=== PATIENT | male | born 1935 | race African-American/Black ===

== ENCOUNTER 2019-02-21 07:24 | Emergency (ER) | payer MEDICARE, OTHER ==
[2019-02-21 08:46] LABS: Bilirubin Negative (Negative); Blood, Urine Negative (Negative); Clarity Clear (Clear); Glucose, Urine (Dipstick) Negative (Negative); Leukocyte Negative (Negative); Nitrite Negative (Negative); Protein, Urine (Dipstick) Trace mg/dL (Neg-Trace); Urobilinogen 0.2 mg/dL (Less than 2)
[2019-02-21 08:57] LABS: #Basophils 0.1 thou/uL (0.0-0.2); #Eosinphils 0.1 thou/uL (0.0-0.7); #Lymphocytes 1.1 thou/uL (1.20-3.40); #Monocytes 0.5 thou/uL (0.11-0.59); #Neutrophils 5.3 thou/uL (1.40-6.50); %Basophils 1.2 % (0.0-1.0); %Eosinophils 0.8 % (0.0-10.0); %Monocytes 6.9 % (0.0-10.0); %Neutrophils 76.2 % (42.0-75.0); Mean Corpuscular HGB CONC 31.1 g/dL (32.0-36.0); Mean Corpuscular Hemoglobin 28.6 pg (27.0-31.0); Mean Corpuscular Volume 92.2 fL (78.0-98.0); Mean Platelet Volume 6.2 fL (7.4-10.4); Platelet Count 154 thou/uL (130-400); RBC Distribution Width 13.3 % (11.5-14.5); Red Blood Cell (RBC) Count 4.55 mill/uL (4.70-6.10)
[2019-02-21 09:15] LABS: ALT (SGPT) 12 U/L (8-55); AST (SGOT) 26 U/L (5-34); Alkaline Phosphatase 54 U/L (40-150); Anion Gap 16 mmol/L (10-20); BUN (Urea Nitrogen) 16 mg/dL (8.4-25.7); Bilirubin, Total 0.3 mg/dL (0.2-1.2); Calc. Creatinine Clearance 0 mL/min (70-130); Calcium 8.7 mg/dL (7.8-10.44); Carbon Dioxide 19 mmol/L (23-31); Chloride 108 mmol/L (98-107); Estimated GFR-MDRD 48; Globulin 3.9 g/dL (2.4-3.5); Glucose 110 mg/dL (83-110); Potassium 4.2 mmol/L (3.5-5.1); Protein, Total 7.9 g/dL (5.8-8.1); Sodium 139 mmol/L (136-145)
--- NOTE | 2019-02-21 10:09 | CT ---
Exam: CHEST CT WITHOUT CONTRAST ABDOMEN CT WITHOUT CONTRAST PELVIS CT WITHOUT CONTRAST: HISTORY: Worsening back pain, x1 month. Evaluate for aortic dissection. FINDINGS: Chest CT: Limited evaluation of the mediastinal structures due to lack of IV contrast. No mediastinal mass or lymphadenopathy.. Heart size is within normal limits. No pericardial effusion. There is calcification of the coronary arteries. The ascending thoracic aorta, aortic arch, descending thoraci c aorta, and abdominal aorta do not demonstrate any periaortic fat stranding. Scattered calcified atherosclerotic plaques are noted. The ascending thoracic aorta is upper normal in size measuring 3.8 x 3.6 cm. No evidence of an aneurysm. Trachea and central bronchi are patent. Dependent atelectatic changes. No pleural effusion. No pneum othorax. Right lun mm nodule in the right upper lobe. Calcified granuloma in the right lower lobe measurin g 2 mm. Left lung: No suspicious masses, consolidation, or nodule. Abdomen CT: Multiple hypodensities in the hepatic parenchyma are presumed to be cysts. Limited and incomplete etelvina luation. Spleen, pancreas, and adrenal glands are grossly unremarkable. Evaluation of the solid organs is limited due to lack of IV contrast. No gastrohepatic, retrocrural, or periportal lymphadenopathy. Limited evaluation of the alimentary canal by the lack of oral contrast administration. No evidence o f bowel obstruction. Ileocecal junction is normal. Normal caliber appendix. Scattered fecal material in a nondistended, nondilated colon. There appears to be polycystic kidney disease bilaterally. No evidence of obstructive uropathy. CT Pelvis: No mass, lymphadenopathy, free air, or free fluid. Mild enlargement of the prostate gland. Unremarkab le urinary bladder. 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 IMPRESSION: 1. Limited evaluation due to the lack of IV contrast. No evidence of aneurysmal dilatation or periaor tic fat stranding, with respect to the thoracic and abdominal aorta. 2. Additional findings as above. Transcribed Date/Time: 02/21/2019 10:44 AM
[2019-02-21] MEDS ORDERED: HYDROcodone/Acetaminophen 5/325 mg Tablet ONE (10:24)
[2019-02-21] MEDS ORDERED: Cyclobenzaprine 10 MG TAB ONE (10:24)
== END 2019-02-21 10:44 | disposition home or self-care (01) ==
LOC: MADERS 07:24
DX: M54.5 Low back pain (principal); G89.29 Other chronic pain; I10 Essential (primary) hypertension; G47.00 Insomnia, unspecified; K21.9 Gastro-esophageal reflux disease without esophagitis; Z79.899 Other long term (current) drug therapy
CPT/HCPCS: 71250; 74177; 80053; 81003; 85025

== ENCOUNTER 2019-04-18 10:44 | Emergency (ER) | payer MEDICARE ==
--- NOTE | 2019-04-18 11:26 | RAD ---
EXAM: Portable chest PROVIDED CLINICAL HISTORY: Weight loss COMPARISON: 11/10/2014 FINDINGS: Cardiac and mediastinal silhouette is within normal limits. No focal consolidation, pleural fluid or pneumothorax evident. IMPRESSION: No evidence for an acute cardiopulmonary process.
[2019-04-18 11:57] LABS: #Basophils 0.1 thou/uL (0.0-0.2); #Lymphocytes 0.9 thou/uL (1.20-3.40); #Monocytes 0.4 thou/uL (0.11-0.59); #Neutrophils 5.7 thou/uL (1.40-6.50); %Eosinophils 0.6 % (0.0-10.0); %Lymphocytes 12.3 % (21.0-51.0); %Neutrophils 80.2 % (42.0-75.0); Hemoglobin 13.1 g/dL (14.0-18.0); Mean Corpuscular HGB CONC 30.9 g/dL (32.0-36.0); Mean Corpuscular Hemoglobin 28.8 pg (27.0-31.0); Mean Corpuscular Volume 93.1 fL (78.0-98.0); Platelet Count 153 thou/uL (130-400); Red Blood Cell (RBC) Count 4.57 mill/uL (4.70-6.10); White Blood Cell (WBC) Count 7.1 thou/uL (4.8-10.8)
[2019-04-18 12:05] LABS: ALT (SGPT) 12 U/L (8-55); AST (SGOT) 24 U/L (5-34); Albumin 4.3 g/dL (3.4-4.8); Alkaline Phosphatase 52 U/L (40-110); Anion Gap 18 mmol/L (10-20); BUN (Urea Nitrogen) 15 mg/dL (8.4-25.7); Bilirubin, Total 0.3 mg/dL (0.2-1.2); Calc. Creatinine Clearance 0 mL/min (70-130); Calcium 9.3 mg/dL (7.8-10.44); Carbon Dioxide 20 mmol/L (23-31); Chloride 108 mmol/L (98-107); Estimated GFR-MDRD 43; Glucose 96 mg/dL (83-110); Lipase 27 U/L (8-78); Potassium 4.7 mmol/L (3.5-5.1); Protein, Total 8.3 g/dL (5.8-8.1); Sodium 141 mmol/L (136-145)
[2019-04-18 12:14] LABS: Bilirubin Negative (Negative); Blood, Urine Negative (Negative); Clarity Clear (Clear); Glucose, Urine (Dipstick) Negative (Negative); Leukocyte Negative (Negative); Nitrite Negative (Negative); Protein, Urine (Dipstick) 30 mg/dL (Neg-Trace); Urobilinogen 0.2 mg/dL (Less than 2)
[2019-04-18 12:20] LABS: Bacteria/HPF Rare-Few HPF (None Seen); RBC/HPF 0-3 HPF (0-3); Squamous Epithelial 0-3 HPF (0-3); WBC/HPF 0-3 HPF (0-3)
--- NOTE | 2019-04-18 12:25 | CT ---
CT Abdomen Pelvis WO Con HISTORY: Abdominal pain. Nausea and vomiting. Weight loss. No IV contrast administered due to low GFR . COMPARISON: 02/21/2019 study. FINDINGS: The lung bases are clear of infiltrates. Multiple hypodensities again noted within the liver, these are felt to represent cysts. They are stab le. The spleen pancreas and gallbladder regions appear unremarkable. Right and left adrenal glands are normal in appearance. Innumerable bilateral renal cyst again seen. No obstruction. No renal calculi. No significant periaortic or mesenteric adenopathy. CT of pelvis performed without contrast enhancement: There is no evidence of any significant pelvic l ymphadenopathy. No fluid collections. The appendix region appears unremarkable. 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 An old left sided symphysi s fracture is noted. IMPRESSION: Multiple hypodensities within the liver most compatible with cysts also innumerable bilat eral renal cysts suggesting polycystic kidney disease. No acute findings in the abdomen or pelvis.
== END 2019-04-18 13:15 | disposition home or self-care (01) ==
LOC: MADERS 10:44
DX: R63.4 Abnormal weight loss (principal); R11.2 Nausea with vomiting, unspecified; G47.00 Insomnia, unspecified; K21.9 Gastro-esophageal reflux disease without esophagitis; I10 Essential (primary) hypertension; Z79.899 Other long term (current) drug therapy
CPT/HCPCS: 71045; 74176; 80053; 81003; 81015; 83690; 84443; 84484; 85025; 94760